=== PATIENT | male | born 1935 | race Caucasian/White ===

== ENCOUNTER 2024-02-02 22:04 | Observation (INO) | payer MEDICARE ==
[~2024-02-02] VITALS: Ht 185.4 cm; Wt 64.5 kg
[~2024-02-02 22:04] MED LIST: FLOMAX0.4 MG PO
[2024-02-02 23:07] LABS: PLATELET COUNT 228 K/uL (140-440)
[2024-02-02 23:12] LABS: BASOPHILS 0.4 % (0-2); EOSINOPHILS 0.9 % (0-6); HEMATOCRIT 34.4 % (35.0-50.0); HEMOGLOBIN 11.2 g/dL (12.0-18.0); LYMPHOCYTES 22.8 % (24-44); MCH 28.1 (27-36); MCHC 32.7 g/dl (30-36); MCV 85.8 fl (81-99); MONOCYTES 7.7 % (0-12); NEUTROPHILS 68.2 % (39-80); RBC 4.01 M/ul (4.3-5.7); RDW 13.6 (10.5-15.0)
[2024-02-02] MEDS ORDERED: LIDOCAINE 2% VISCOUS 6 ML SYR TOP ONE (23:15)
[2024-02-02 23:16] LABS: ALBUMIN 3.1 g/dL (3.4-5.0); ALBUMIN/GLOBULIN RATIO 0.7 (1.1-2.4); ANION GAP 13.7 (7-21); BILIRUBIN, TOTAL 0.5 ng/dL (0.2-1.0); BUN/CREATININE RATIO 27.08 (6.0-28.6); CALCIUM 9.3 mg/dL (8.5-10.1); CREATININE, SERUM 0.96 mg/dL (0.70-1.30); POTASSIUM 3.7 mmol/L (3.5-5.1); PROTEIN, TOTAL 7.5 g/dL (6.4-8.2)
[2024-02-02 23:40] LABS: INR 1.05 (0.80-1.30); PROTIME 13.3 Sec (11.2-14.2)
[2024-02-03] VITALS (7 sets, daily range): BP systolic 106–139; BP diastolic 65–90
[2024-02-03 01:16] LABS: COLLECTION TYPE, URINE CLEAN CATCH
[2024-02-03 01:30] LABS: RED BLOOD CELLS, URINE >50 /hpf (0-5)
[2024-02-03 01:31] LABS: BACTERIA, URINE RARE /hpf (negative); CASTS, URINE NONE SEEN \\lpf; CRYSTALS, URINE NONE SEEN (0-1+); EPITHELIAL CELLS, URINE NONE SEEN /lpf (0-1+); REFLEX CULTURE, URINE Yes (No)
[2024-02-03] MEDS ORDERED: CEFTRIAXONE/SODIUM CHLORIDE 2 GM/100 ML PIGGYBACK IV ONE (05:30)
[2024-02-03] MEDS ORDERED: LACTATED RINGER'S 1,000 ML IV SCH (06:00)
[2024-02-03] MEDS ORDERED: DEXTROSE 50% 50 ML SYR IV PRN ×2 (06:00)
[2024-02-03] MEDS ORDERED: IBLOOD GLUCOSE TEST STRIP 1 EA TEST XX PRN (06:00)
[2024-02-03] MEDS ORDERED: GLUCAGON,HUMAN RECOMBINANT 1 MG/ML VIAL SUB-Q PRN (06:00)
[2024-02-03] MEDS ORDERED: DEXTROSE 5% 1,000 ML IV PRN (06:00)
[2024-02-03 06:30] LABS: HEMATOCRIT 34.8 % (35.0-50.0); HEMOGLOBIN 11.4 g/dL (12.0-18.0)
--- NOTE | 2024-02-03 07:15 | NUR ---
@0630 RECEIVED REPORT FROM [facility]. PT [place] OF PICURIS, FULL SELBY, NO TEETH, DENIES DENTURES. NOTED PT FINGERNAILS LONG; TOE NAILS THICK. CATH DRAINING RED OUTPUT, CBI INFUSING. PT TO ROOM 111 AT 0655. REQUIRED STAFF TO PULL PT OVER PT WANTED TO ROLL. PT IS HARD OF HEARING, NEED TO REPEAT CONVERSATION. RIGHT HIP WITH QUARTER SIZE AREA HE HAS SCRATCHED. HIS LOWER ABD. HAS MULT RED PETECHIA WELL PENIS WITH AREAS OF SIMILAR, PERHAPS "SCRATCHES". RA; CALL LIGHT WITHIN REACH, BEDALARM PLACED FOR SAFETY; PT LIVES WITH HIS SON, STATES HE HAS NOT BEEN ABLE TO EAT FOR "WHILE", SON BRINGS HIM "THOSE NOURSHIMENT DRINKS". "JUST NOT HUNGRY".
--- NOTE | 2024-02-03 07:59 | NUR ---
PT QUIET ALERT AT TIME OF SHIFT REPORT. DENIES DISCOMFORTS OR NEEDS, AGREES TO USE CALL LIGHT PRN. REMAINS NPO AT THIS TIME CBI RUNNING LIGHT RED
[2024-02-03] MEDS ORDERED: Insulin Regular, Human 100 UNIT/ML ML SUB-Q SCH (08:00)
[2024-02-03] MEDS ORDERED: IBLOOD GLUCOSE TEST STRIP 1 EA TEST XX SCH (08:00)
--- NOTE | 2024-02-03 08:21 | NUR ---
Board has been updated and call light has been placed within reach. No request from patient at this time
--- NOTE | 2024-02-03 08:53 | NUR ---
DR ARIAS IN TO SEE PT DISCUSSED NEED FOR SURGERY. PT ALERT AND INTERACTIVE ASKS APPROPRIATE QUESTIONS
[2024-02-03] MEDS ORDERED: ondansetron HCL 4 MG/2 ML VIAL IV PRN (09:00)
[2024-02-03] MEDS ORDERED: MORPHINE SULFATE 4 MG/ML VIAL IV PRN (09:00)
[2024-02-03] MEDS ORDERED: TRAMADOL HCL 50 MG TAB PO PRN (09:00)
[2024-02-03 09:48] LABS: ABO O; ANTIBODY SCREEN NEGATIVE; RH POSITIVE
--- NOTE | 2024-02-03 09:49 | NUR ---
PT TO O/R PROCEEDURE VIA BED
--- NOTE | 2024-02-03 09:50 | NUR ---
UR CLINICAL REVIEW: 2 MN FOR VERSALUS-MEET OBS CRITERIA MEDICARE OBS 02/03/24 @ 0848 ORDER MATCHES REG NO AUTH REQUIRED PER MEDICARE GUIDELINES DISCHARGE PENDING SURGICAL MANAGEMENT AND FUTHER EVAL
[2024-02-03] MEDS ORDERED: fentaNYL citrate 100 MCG/2 ML VIAL ONE (10:21)
[2024-02-03] MEDS ORDERED: DEXAMETHASONE SOD PHOS 4 MG/ML VIAL ONE (10:21)
[2024-02-03] MEDS ORDERED: ROCURONIUM BROMIDE 50 MG/5 ML SYR ONE ×2 (10:21→12:33)
[2024-02-03] MEDS ORDERED: propofoL 200 MG/20 ML VIAL ONE (10:21)
[2024-02-03] MEDS ORDERED: LIDOCAINE HCL 2% 5 ML SDV ONE (10:21)
[2024-02-03] MEDS ORDERED: ondansetron HCL 4 MG/2 ML VIAL ONE (10:21)
[2024-02-03] MEDS ORDERED: ePHEDrine sulfate 50 MG/ML AMP ONE (10:34)
[2024-02-03] MEDS ORDERED: ACETAMINOPHEN 1,000 MG/100 ML VIAL ONE (10:56)
[2024-02-03] MEDS ORDERED: FLUORESCEIN SODIUM 500 MG/5 ML ML ONE (12:33)
[2024-02-03] MEDS ORDERED: PHENYLEPHRINE HCL 10 MG/ML VIAL ONE (12:33)
[2024-02-03] MEDS ORDERED: SUGAMMADEX SODIUM 200 MG/2 ML ML ONE (12:57)
[2024-02-03] MEDS ORDERED: oxyBUTYnin chloride 5 MG TAB PO ONE (13:30)
--- NOTE | 2024-02-03 13:49 | NUR ---
PT TO FLOOR WITH SWET[facility] PT AWAKE BUT DROWSY. PT DENIES PAIN. LEBRON DRAINING LIGHT BRIGHT YELLOW URINE, NO SEDIMENT OR BLOOD NOTED. VS STABLE. BS 142
--- NOTE | 2024-02-03 14:00 | NUR ---
02/03/24 1400 [place] [place] 1309 PT ARRIVED IN PACU SLEEPY WITH NO C/O'S. LEBRON ON CBI WITH BRIGHT YELLOW URINE PRESENT. EMPTIED LEBRON OF 1200ML URINE ON ARRIVAL. 1320 PT AWAKE AND HOLDING RN'S HAND. 1340 TO MED SURG ROOM 111. BED PLUGGED IN AND REPORT GIVEN TO RN. PT WEARING OWN HAT.
[2024-02-03] MEDS ORDERED: TRAMADOL HCL50 MG PO (14:02)
[2024-02-03] MEDS ORDERED: CIPRO250 MG PO (14:03)
--- NOTE | 2024-02-03 15:04 | NUR ---
PT RETURNED TO [facility] UNDER CARE OF NEUROLOGY TECHNOLOGIST. PT IS RESTING EYES CLOSED AT THIS TIME LEBRON DRAINING CLEAR YELLOW URINE.
--- NOTE | 2024-02-03 15:12 | NUR ---
VISITED DURING SPIRITUAL CARE ROUNDS. PT APPEARED TO BE SLEEPING. DID NOT DISTURB. PROVIDED PRAYER.
--- NOTE | 2024-02-03 15:17 | NUR ---
PT AWAKE NOW LUNCH BOX PROVIDED PT AGREES HE IS HUNGRY. CBI DC'D LEBRON REMAINS IN PLACE DRAINING BRIGHT YELLOW URINE. NO C/O PAIN OR DISCOMFORT
--- NOTE | 2024-02-03 15:27 | NUR ---
SPOKE WITH SANDRA SUPERVISOR MOLD SHOP TO DR ARIAS WHOM CONFIRMED DC AFTER CRITERIA MET. CALLED SON WHO WILL BE HERE IN APPROX 1 HOUR.
--- NOTE | 2024-02-03 16:00 | NUR ---
Spoke with pt and he states he lives with son. They share house hold expenses and rent. Pt has difficulty walking. He states he sits in a chair and use a bottle to void in. When his son gets home, he gets on and off the toilet. Pt has a walker, cane, and shower chair. 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 He feels he does well with his son at home. Pt does not drive. Son cleans, grocery shops, and cooks. Pt does use the food bank/meals on wheels. I called Katelin Schroeder at [facility] and she states she has this pt on a list to call. They have a new program she believes he would qualify for. Let her know I gave him a [facility] brochure and wrote her name on it and phone number. She states she will call the son. Pt is waiting for son to pick him up.
--- NOTE | 2024-02-03 16:18 | NUR ---
PT FINISHED EATING SANDWICH BOX. DRESSED IN HOSPITAL PANTS DUE TO OWN CLOTHES BEING SOILED. VITALS COMPLETE. CALL LIGHT IN REACH.
--- NOTE | 2024-02-03 16:35 | NUR ---
PT RESTING IN BED. ASSESSMENT COMPLETE. DENIES PAIN. DENIES ANY NEEDS AT THIS TIME. CALL LIGHT IN REACH
--- NOTE | 2024-02-04 12:55 | EKG ---
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
--- NOTE | 2024-02-06 15:59 | PATH ---
[facility] [address] [facility] [place], [place] [address] Signed SPECIMEN(S): A BLADDER TUMOR SPECIMEN SOURCE: A. BLADDER TUMOR CLINICAL HISTORY: Hematuria and urinary retention. FINAL PATHOLOGIC DIAGNOSIS: Bladder tumor, TUR: - Invasive high-grade papillary urothelial carcinoma. - Tumor configuration: Papillary. - Tumor grade: High-grade. - Stromal invasion: Present, extensive. - Detrusor muscle: Present with extensive tumor invasion. COMMENT: As part of [facility]' Quality Improvement Program, this case was reviewed by another member of our pathology staff. Diagnostic notification to the office of Dr. Campoverde is initiated by Dr. Nassar and will be recorded separately. DennisVR:crow MICROSCOPIC EXAMINATION: Histologic sections of all submitted blocks are examined by light microscopy. These findings, together with the gross examination, support the pathologic diagnosis. GROSS DESCRIPTION: The specimen, labeled and designated "Tonya, bladder tumor," is received in formalin and consists of irregular shaped pink-ojeda, rubbery and friable tissue fragments mixed with coagulated blood that aggregate measure 7.5 x 6.5 x 1.5 cm. As many as possible coagulated blood fragments from bladder tissue. After that the specimens measure 6.5 x 4.2 x 0.3 cm. The bladder tissue weighs 8 grams. The coagulated blood is preserved within the container and rubbery and friable tissue is entirely submitted in (A1-A4). JS (under the direct supervision of a pathologist) The Gross Description was prepared using a voice recognition system. The report was reviewed for accuracy; however, sound-alike word errors, addition and/or deletions may occur. If there is any PATIENT NAME: JESUS RAZA PATHOLOGY DATE OF : [birth year] REPORT #: [id number] PHYSICIAN: SHANI PATHOLOGY PCP: JAXON ROJAS MD REPORT IS CONFIDENTIAL AND NOT TO BE RELEASED WITHOUT AUTHORIZATION [facility] [address] [place] [address] Signed question about this report, please contact Client Services. PERFORMING LABORATORY: Technical component was performed by [facility], [address] [place] [address] (CLIA# [id number]). Professional interpretation was performed by [facility] - [address] [address] (CLIA#: [id number]). Diagnostician: Yao Nassar MD Pathologist Electronically Signed 02/06/2024 Copies: ~ PATIENT NAME: JESUS RAZA PATHOLOGY DATE OF : [birth year] REPORT #: [id number] PHYSICIAN: SHANI OWENS PCP: JAXON ROJAS MD REPORT IS CONFIDENTIAL AND NOT TO BE RELEASED WITHOUT AUTHORIZATION
== END 2024-02-03 17:36 | disposition home or self-care (01) ==
LOC: ED 22:04 → MS 22:05
PROVIDERS: Internal Medicine; ADMIT Urology; ATTEND Urology
PROC: 0TBB8ZZ Excision of Bladder, Via Natural or Artificial Opening Endoscopic (ICD-10-PCS; 2024-02-03)
PROC: 0T7D8ZZ Dilation of Urethra, Via Natural or Artificial Opening Endoscopic (ICD-10-PCS; 2024-02-03)
PROC: 0DCQXZZ Extirpation of Matter from Anus, External Approach (ICD-10-PCS; 2024-02-03)
PROC: 0TCB8ZZ Extirpation of Matter from Bladder, Via Natural or Artificial Opening Endoscopic (ICD-10-PCS; principal; 2024-02-03 15:35)
DX: C67.9 Malignant neoplasm of bladder, unspecified (principal); R31.0 Gross hematuria; R33.8 Other retention of urine; N32.89 Other specified disorders of bladder; K56.41 Fecal impaction; Z85.038 Personal history of other malignant neoplasm of large intestine; Z91.030 Bee allergy status
CPT/HCPCS: 00912; 36415; 51702; 51798; 71045; 74177; 80053; 81001; 83036; 85014; 85018; 85025; 85610; 86850; 86900; 86901; 87088; 88307; 93005; 93010; 99285-25; G0378; J0131; J0696; J1100; J2001; J2371; J2405; J2704; J3010; J3490

== ENCOUNTER 2024-02-11 17:29 | Emergency (ER) | payer MEDICARE ==
[~2024-02-11] VITALS: Ht 185.4 cm; Wt 62.2 kg
[~2024-02-11 17:29] MED LIST changes: +CIPRO250 MG PO; +TRAMADOL HCL50 MG PO
--- OUTSIDE RECORDS SUMMARY | 2024-02-11 17:36 | XMS ---
PreManage Notification: JESUS RAZA Security Lining [place] Blindstitch Events No recent Security Events currently on file CRITERIA MET - [facility] - 2 Visits in 30 Days CARE PROVIDERS There are no care providers on record at this time. [facility] has no Care Guidelines for this patient. [facility] VISIT COUNT (12 MO.) [facility] T[facility] NOTE: Visits indicate total known visits. ED/C VISIT TRACKING (12 MO.) 02/11/2024 17:30 [facility] [place] [facility]: Emergency COMPLAINT: - BLADDER ISSUE 02/02/2024 22:04 [facility] [place] TYPE: Emergency COMPLAINT: - BLOOD IN URINE INPATIENT VISIT TRACKING (12 MO.) 02/02/2024 22:05 [facility] [place] TYPE: Observation COMPLAINT: - HEMATURIA/ URINARY RETENTION DIAGNOSES: - Bee allergy status - Fecal impaction - Gross hematuria - Malignant neoplasm of bladder, unspecified - Other retention of urine - Other specified disorders of bladder - Personal history of other malignant neoplasm of large intestine [email or web address]
[2024-02-11 21:44] VITALS: BP 127/82
== END 2024-02-11 22:47 | disposition home or self-care (01) ==
LOC: ED 17:29
DX: N50.812 Left testicular pain (principal); F03.90 Unspecified dementia, unspecified severity, without behavioral disturbance, psychotic disturbance, mood disturbance, and anxiety; Z91.030 Bee allergy status; Z79.899 Other long term (current) drug therapy
CPT/HCPCS: 76870; 99283-25